=== PATIENT | female | born 2000 | race Two or more races ===

== ENCOUNTER 2021-04-26 09:35 | Outpatient (REF) | payer OTHER, SELFPAY ==
[2021-04-26 15:54] LABS: CT PCR NOT DETECTED (Not Detect.); NG PCR NOT DETECTED (Not Detect.)
== END 2021-04-26 09:36 | disposition home or self-care (01) ==
LOC: HO.LAB 09:35
PROVIDERS: PCP Internal Medicine; Visit Provider Obstetrics & Gynecology
DX: Z01.419 Encounter for gynecological examination (general) (routine) without abnormal findings (principal); Z11.3 Encounter for screening for infections with a predominantly sexual mode of transmission
CPT/HCPCS: 87491; 87591; 88142

== ENCOUNTER 2022-01-16 09:23 | Emergency (ER) | payer OTHER, SELFPAY ==
--- NOTE | ~2022-01-16 | XR_ITS ---
EXAMINATION: XR CHEST CLINICAL INFORMATION: Chest pain COMPARISON: None TECHNIQUE: 2 views of the chest were obtained. FINDINGS: No significant abnormality is noted involving the heart, lungs, mediastinum, bony thorax or soft tissues. XR/XR chest 2V IMPRESSION: Unremarkable examination.
[2022-01-16 09:51] VITALS: BP 112/74; PULSE 100; RESP 16; TEMP 36.7; O2SAT 97; BMI 30.8
--- NOTE | 2022-01-16 11:06 | ECG_ITS ---
Test Reason : CHEST PAIN/ DISSY Blood Pressure : / mmHG Vent. Rate : 089 BPM Atrial Rate : 089 BPM P-R Int : 128 ms QRS Dur : 084 ms QT Int : 360 ms P-R-T Axes : 054 037 039 degrees QTc Int : 438 ms Normal sinus rhythm with sinus arrhythmia Normal ECG No previous ECGs available Referred By: Xuan Vaughan Electronically Signed By:Alberto Castrejon
[2022-01-16 12:59] LABS: MANUAL DIFF FLAG NO
[2022-01-16 13:02] LABS: Basophils Percent Auto 0.2 % (0-2); Eosinophils Absolute Auto 0.1 X10*3/uL (0.0-0.4); Hematocrit 38.3 % (37.0-47.0); Hemoglobin 12.5 g/dl (12.0-16.0); Imm Gran Abs Auto 0.02 X10*3/uL (0.00-0.03); Imm Gran Pct Auto 0.4 % (0.0-0.4); Lymphocytes Absolute Auto 1.2 X10*3/uL (1.2-4.9); Lymphocytes Percent Auto 23.8 % (20-40); Mean Corpuscular HGB Conc 32.6 g/dl (31.0-35.0); Mean Corpuscular Hemoglobin 28.6 pg (27.0-33.0); Mean Corpuscular Volume 87.6 fL (80.0-98.0); Monocytes Absolute Auto 0.4 X10*3/uL (0.1-1.2); Monocytes Percent Auto 8.3 % (2-11); Neutrophils Absolute Auto 3.3 x10*3/uL (2.0-8.3); Neutrophils Percent Auto 65.3 % (45-73); Platelet Count 222 X10*3/uL (160-400); Red Blood Count 4.37 X10*6/uL (4.20-5.50); Red Cell Distribution Width 13.3 % (11.0-16.0); White Blood Count 5.1 X10*3/uL (4.8-10.8)
[2022-01-16 13:23] LABS: Troponin-I High Sensitivity < 3.5 ng/L (<3.5-17.0)
[2022-01-16 13:42] LABS: Alanine Aminotransferase 21 U/L (0-31); Albumin Level 4.4 g/dL (3.5-5.0); Alkaline Phosphatase 85 U/L (39-117); Anion Gap 11 (12-20); Aspartate Amino Transferase 21 U/L (5-31); Bilirubin Direct 0.4 mg/dL (0.0-0.5); Bilirubin Total 0.9 mg/dL (0.0-1.0); Blood Urea Nitrogen 10 mg/dL (9-16); Calcium 8.8 mg/dL (8.4-10.2); Carbon Dioxide 28 mmol/L (22-29); Chloride 105 mmol/L (96-108); Estimated Glomerular Filt Rate > 60; Glucose Random 91 mg/dL (60-115); Lipase 12 U/L (8-78); Potassium 3.6 mmol/L (3.3-5.1); Sodium 140 mmol/L (135-145); Total Protein 7.7 g/dL (6.5-8.0)
[2022-01-16 13:50] LABS: HCG Quantitative < 2 mIU/mL
--- NOTE | 2022-01-16 14:06 | ED.NAVMDI ---
HPI - Nausea/Vomiting/Diarrhea General Chief complaint: General Medical Stated complaint: vomiting blood, lightheaded, sob Time Seen by Provider: 01/16/22 11:05 Source: patient Mode of arrival: ambulatory Limitations: no limitations History of Present Illness MD elicited complaint: nausea and vomiting Onset (ago): day(s) (last night) Description of vomiting: food contents and watery Associated nausea: Yes Associated abdominal pain: No Severity: moderate Exacerbating factors: eating Relieving factors: none Context: other (denies any exposures, ate at home) Associated symptoms: chest pain (along sternum hx of costochondritis), loss of appetite, malaise and nausea/vomiting Related Data Home Medications Medication Instructions Recorded Confirmed copper 380 square mm intrauterine intrauterine 04/26/21 device (ParaGard T 380A) Previous Rx's Medication Instructions Recorded ondansetron 4 mg disintegrating 4 mg PO Q8H PRN nausea and 01/16/22 tablet vomiting #20 tabs Allergies Allergy/AdvReac Type Severity Reaction Status Date / Time No Known Allergies Allergy Verified 04/26/21 09:46 Review of Systems Review of Systems: Constitutional : No Fever, No Chills ENT/Mouth : No sore throat, No Rhinorrhea Eyes: No Eye Pain, No Swelling Cardiovascular : pos Chest Pain, no SOB, No Edema, No Palpitations Respiratory : No Cough, No Sputum Gastrointestinal : pos Nausea, pos Vomiting, No Diarrhea, No abdominal Pain, No Hematochezia, No Melena Genitourinary : No Dysuria, No Urinary Frequency Musculoskeletal : No joint pain, No Myalgias, No Joint Swelling Skin : No Skin Lesions, No rash Neuro : No Weakness, No Numbness, No Dizziness, No Headache Psych : No Anxiety/Panic, No Depression Heme/Lymph: No Bruising, No Lymphadenopathy Endocrine : No Polyuria, No Polydipsia All other systems reviewed and are negative Gastrointestinal: Gastrointestinal: Reports nausea PMFSH Past Medical History Attestation statement: The following information was validated with the patient. Medical History Costochondritis Family History Family History Maternal Aunt Breast CA Social History Social History Patient Tobacco Use Status: Never used Tobacco Advance Directives: No Advance Directives Information Provided: No Physical Exam Vital Signs: Vital Signs: Last Vital Signs Temp 98.1 F 01/16/22 14:23 Pulse 88 01/16/22 14:23 Resp 16 01/16/22 14:23 BP 110/74 01/16/22 14:23 Pulse Ox 100 01/16/22 14:23 O2 Del Method 01/16/22 14:23 BMI result Body Mass Index 30.8 Appearance: Alert. Oriented X3. No acute distress. Eyes: Pupils equal, round and reactive to light. ENT: Pharynx normal. Neck: Normal inspection. Neck supple. CVS: Normal heart rate and rhythm. Pulses normal. Chest: mild ttp along sternum reproduces pain Respiratory: No respiratory distress. Breath sounds normal. Abdomen: Soft and nontender. Skin: Skin warm and dry. Normal skin color. Normal skin turgor. Extremities: No lower extremity edema. No calf ttp Neuro: Oriented X 3. No motor deficit. No sensory deficit. MDM - Nausea/Vomiting/Diarrhea MDM Narrative Medical decision making narrative: 21 yo female with hx of costochondritis here with c/o n/v all night without food exposures, benign abdominal exam. She also has reproduceable CWP. At this time not toxic, no vomiting here, labs from waiting room CBC, LFTs, BMP, lipase, hcg negative and no abdominal ttp will give ODT zofran and obtain UA. Dispo per UA and PO challenge. Doubt appendicitis/GB pathology given lack of abdominal pain Lab Data Result diagrams: 01/16/22 12:53 01/16/22 12:53 Labs: Lab Results 01/16/22 01/16/22 01/16/22 Range/Units 12:53 12:53 12:53 WBC 5.1 (4.8-10.8) X10*3/uL RBC 4.37 (4.20-5.50) X10*6/uL Hgb 12.5 (12.0-16.0) g/dl Hct 38.3 (37.0-47.0) % MCV 87.6 (80.0-98.0) fL MCH 28.6 (27.0-33.0) pg MCHC 32.6 (31.0-35.0) g/dl RDW 13.3 (11.0-16.0) % Plt Count 222 (160-400) X10*3/uL MPV 10.0 (9.4-12.3) fL Immature Gran % (Auto) 0.4 (0.0-0.4) % Neut % (Auto) 65.3 (45-73) % Lymph % (Auto) 23.8 (20-40) % [place] % (Auto) 8.3 (2-11) % Eos % (Auto) 2.0 (0-4) % Baso % (Auto) 0.2 (0-2) % Lymph # (Auto) 1.2 (1.2-4.9) X10*3/uL [place] # (Auto) 0.4 (0.1-1.2) X10*3/uL Eos # (Auto) 0.1 (0.0-0.4) X10*3/uL Baso # (Auto) 0.0 (0.0-0.2) X10*3/uL Abs Immat Gran (auto) 0.02 (0.00-0.03) X10*3/uL Absolute Neuts (auto) 3.3 (2.0-8.3) x10*3/uL Absolute Nucleated RBC 0.000 (0.0-0.012) X10*3/uL Nucleated RBC % (auto) 0.0 (0.0-0.2) /100WBC Sodium 140 (135-145) mmol/L Potassium 3.6 (3.3-5.1) mmol/L Chloride 105 (96-108) mmol/L Carbon Dioxide 28 (22-29) mmol/L Anion Gap 11 L (12-20) BUN 10 (9-16) mg/dL Creatinine 0.82 (0.5-1.4) mg/dL Estim Creat Clear Calc 107.0 Estimated GFR > 60 Random Glucose 91 (60-115) mg/dL Calcium 8.8 (8.4-10.2) mg/dL Total Bilirubin 0.9 (0.0-1.0) mg/dL Direct Bilirubin 0.4 (0.0-0.5) mg/dL AST 21 (5-31) U/L ALT 21 (0-31) U/L Alkaline Phosphatase 85 (39-117) U/L Troponin I High Sens < 3.5 (<3.5-17.0) ng/L Total Protein 7.7 (6.5-8.0) g/dL Albumin 4.4 (3.5-5.0) g/dL Lipase 12 (8-78) U/L Beta HCG, Quant < 2 mIU/mL Urine Color Urine Appearance Urine pH (5.0-8.0) Ur Specific Josephine (1.005-1.025) Urine Protein (NEG-TRACE) MG/DL Urine Glucose (UA) (NEG) MG/DL Urine Ketones (NEG) MG/DL Urine Blood (NEG) Urine Nitrite (NEG) Ur Leukocyte Esterase (NEG) 01/16/22 Range/Units 14:30 WBC (4.8-10.8) X10*3/uL RBC (4.20-5.50) X10*6/uL Hgb (12.0-16.0) g/dl Hct (37.0-47.0) % MCV (80.0-98.0) fL MCH (27.0-33.0) pg MCHC (31.0-35.0) g/dl RDW (11.0-16.0) % Plt Count (160-400) X10*3/uL MPV (9.4-12.3) fL Immature Gran % (Auto) (0.0-0.4) % Neut % (Auto) (45-73) % Lymph % (Auto) (20-40) % [place] % (Auto) (2-11) % Eos % (Auto) (0-4) % Baso % (Auto) (0-2) % Lymph # (Auto) (1.2-4.9) X10*3/uL [place] # (Auto) (0.1-1.2) X10*3/uL Eos # (Auto) (0.0-0.4) X10*3/uL Baso # (Auto) (0.0-0.2) X10*3/uL Abs Immat Gran (auto) (0.00-0.03) X10*3/uL Absolute Neuts (auto) (2.0-8.3) x10*3/uL Absolute Nucleated RBC (0.0-0.012) X10*3/uL Nucleated RBC % (auto) (0.0-0.2) /100WBC Sodium (135-145) mmol/L Potassium (3.3-5.1) mmol/L Chloride (96-108) mmol/L Carbon Dioxide (22-29) mmol/L Anion Gap (12-20) BUN (9-16) mg/dL Creatinine (0.5-1.4) mg/dL Estim Creat Clear Calc Estimated GFR Random Glucose (60-115) mg/dL Calcium (8.4-10.2) mg/dL Total Bilirubin (0.0-1.0) mg/dL Direct Bilirubin (0.0-0.5) mg/dL AST (5-31) U/L ALT (0-31) U/L Alkaline Phosphatase (39-117) U/L Troponin I High Sens (<3.5-17.0) ng/L Total Protein (6.5-8.0) g/dL Albumin (3.5-5.0) g/dL Lipase (8-78) U/L Beta HCG, Quant mIU/mL Urine Color YELLOW Urine Appearance CLEAR Urine pH 6.5 (5.0-8.0) Ur Specific Josephine 1.020 (1.005-1.025) Urine Protein 1+ H (NEG-TRACE) MG/DL Urine Glucose (UA) NEG (NEG) MG/DL Urine Ketones 5 (NEG) MG/DL Urine Blood NEG (NEG) Urine Nitrite NEG (NEG) Ur Leukocyte Esterase NEG (NEG) ECG Data Attestation: I personally reviewed and interpreted this ECG as follows: ECG interpretation date: 01/16/22 ECG interpretation time: 14:07 Interpretation: Rate: 89 Rhythm: NSR [place]: normal Normal P waves. Normal ALINA. Normal QRS complex. ST T wave : normal no THONG qTC: normal prior studies: no acute ischemia The study has been interpreted contemporaneously by me. . Discharge Plan Discharge Clinical Impression: Acute chest wall pain Vomiting Qualifiers: Vomiting type: unspecified Nausea presence: with nausea Qualified Code(s): R11.2 - Nausea with vomiting, unspecified Patient Disposition: Home, Self-Care Instructions: Acute Nausea and Vomiting (ED), Chest Wall Pain (ED) Additional Instructions: return to ED for any worsening symptoms or concerns Prescriptions: New ondansetron 4 mg tablet,disintegrating 4 mg PO Q8H PRN (Reason: nausea and vomiting) Qty: 20 0RF No Action ParaGard T 380A 380 square mm intrauterine device intrauterine Stand Alone Forms: Work/School Release
[2022-01-16] MEDS: Ondansetron ODT 4 MG TAB.RAPDIS TRANSLINGU (14:22)
[2022-01-16 14:23] VITALS: BP 110/74; PULSE 88; RESP 16; TEMP 36.7; O2SAT 100
[2022-01-16 14:40] LABS: Appearance Urine CLEAR; Color Urine YELLOW; Glucose Urine UA NEG (NEG); Leukocyte Esterase Urine NEG (NEG); Nitrite Urine NEG (NEG); PH 6.5 (5.0-8.0); UACC Culture Trigger NO; Urine Blood NEG (NEG); Urine Ketones 5 MG/DL (NEG); Urine Protein 1+ MG/DL (NEG-TRACE)
[2022-01-16 15:04] LABS: RBC Urine 0-2 /HPF (0); Squamous Epithelial Cell Urine 1+ /LPF; WBC Urine 0-2 /HPF (0-4)
== END 2022-01-16 15:06 | disposition home or self-care (01) ==
PROVIDERS: Emergency Provider Emergency Medicine
DX: R07.89 Other chest pain (principal); K92.0 Hematemesis; R06.02 Shortness of breath; Z79.899 Other long term (current) drug therapy
CPT/HCPCS: 36415; 71046; 80048; 80076; 81001; 83690; 84484; 84702; 85025; 93005; 99283

== ENCOUNTER 2022-05-17 12:20 | Outpatient (REF) | payer OTHER, SELFPAY ==
[2022-05-17 15:18] LABS: CT PCR NOT DETECTED (Not Detect.); NG PCR NOT DETECTED (Not Detect.)
[2022-05-18 11:14] LABS: BV Int Neg Control Negative (Negative); BV Int Pos Control Positive (Positive)
== END 2022-05-17 12:21 | disposition home or self-care (01) ==
LOC: HO.LNP 12:20
PROVIDERS: Visit Provider Advanced Practice Midwife
DX: Z01.419 Encounter for gynecological examination (general) (routine) without abnormal findings (principal)
CPT/HCPCS: 87480; 87491; 87510; 87591; 87660

== ENCOUNTER 2023-05-20 11:11 | Outpatient (AMB) | payer OTHER, SELFPAY ==
[2023-05-20 11:19] VITALS: BP 110/70; BMI 35.1
--- NOTE | 2023-05-20 11:19 | A.OFFVIS_ITS ---
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 Intake Note: no concerns Compensation Specialist Required: No Information Interpreted: non-clinical & clinical Flight Technician: Flight Technician Present Accompanied by: Self / Same As Patient Allergies food allergies Allergy (Mild, Uncoded 05/20/23 11:20) hives Medication List - Last Reconciled 05/20/23 by Terri Wallace CNM copper (ParaGard T 380A) intrauterine ondansetron 4 mg PO Q8H PRN Is last menstrual period known: Yes Last menstrual period: 04/28/23 HPI 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 She had can considered all of her options before choosing the ParaGard IUD and chose it thoughtfully because she does not like the effects of hormones on her body she has used pills in the past and did not like how they made her feel she does not want to switch to any hormonal method she and her fiance are thinking about having another baby in maybe in a couple of years. She has no worries about STDs but desires testing with the exam just as a matter of routine. She thinks she needs to get in better shape and she has good intentions to try to get up earlier in the morning before work and go to the gym which is any time fitness that she has a membership to she used to run and loves how she feels outside running and she used to run 4 miles a day but she thinks she is out of shape and if she tried to run it would not be good right now. She works in the [employer] in [place]. 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 Sexual orientation: Straight/Heterosexual Gender identity: Female Female Reproductive History Menstrual Age of Menarche: 8 Duration of menses: 6-7 days Date of last menstrual period: 04/28/23 control method: copper IUCD Total pregnancies: 1 Full term: 1 Number of Living Children: 1 Date of last pap smear: 04/26/21 Physical Exam Vital Signs: Last Vital Signs BP 110/70 05/20/23 11:19 BMI result Body Mass Index 35.1 Const General: healthy appearing, comfortable, no acute distress, well developed and alert Nutritional Appearance: average body habitus Orientation/consciousness: patient oriented x3 Limitations: no limitations HEENT Head: Yes normocephalic Neck Neck: Yes normal visual inspection Thyroid: Thyroid normal Chest Chest palpation & inspection: normal inspection of the chest Breast/axilla inspection: normal inspection of the breasts and normal inspection of the axillae Breast/axilla palpation: normal palpation of the breasts and normal palpation of the axillae Resp Effort & Inspection: normal respiratory effort GI Inspection: Yes normal to inspection, No Abdominal wall edema and No distended Palpation (GI): Soft to palpation and nontender Other: Vagina pink and moist very normal healthy appearing discharge cervix multiparous with normal appearing mucus and ParaGard strings extending from os approximately 2.5 cm. Uterus is small anteverted mobile nontender adnexa nontender not enlarged and fair tone with Kegel. Kegel's reviewed. General: Yes bladder normal to palpation External Female Exam: normal external appearance and normal appearance of the urethra Speculum Exam - Vagina: normal appearance of the vagina, normal palpation and normal vaginal discharge Speculum Exam - Cervix: normal appearance of the cervix, normal palpation and nontender Bimanual exam- vagina & uterus: normal bimanual exam, normal palpation, uterine size normal, bladder normal to palpation, consistency normal, normal palpation, uterine mobility normal, uterine shape normal, No Cervical tenderness present, non-tender and no cervical motion tenderness Bimanual Exam- Adnexa, other: normal adnexae, no masses, normal and No adnexal tenderness Neuro General: patient oriented x3 Results Reviewed Results Reviewed: Name: Michelle Zhou Age/Sex: Attending: Jak Ahmadi MD : 2000 Submitted by: Jak Ahmadi MD Copies to: Diya Devine MD MR #: [id number] Status: DEP REF Collected: 04/26/21 Location: .LAB Received: 04/26/21 Interpretation Satisfactory for evaluation. Moderate inflammation. Negative for intraepithelial lesion or malignancy. Clinical Information LMP: 03/2021 Previous PAP test: Never Material Received ThinPrep-Cervical Copies To Diya Devine MD [address] [place] [address] Dr. [address]w [address] [address] Jak Ahmadi MD [address] [place] [address] Dr. Mathew [address] [address] Electronically Signed By: SEEMA Brown (ASCP) 05/11/21 1106 The Pap Test is a screening procedure with the inherent possibility of both false negative and false positive results. Results should be interpreted in the context of historic and current clinical findings. Reliability of the Pap Test is enhanced by performing the test on a regular repetitive basis. Patient: Michelle Zhou Age/Sex: 20/F [id number] MR#: [id number] Page 1 of 1 Assessment & Plan Assessment & Plan (1) IUD (intrauterine device) in place: Comment: Has ParaGard IUD in place since after of her 1-year-old Code(s): Z97.5 - Presence of (intrauterine) contraceptive device (2) Cervical cancer screening: Comment: 05/17/2022 Pap is negative. Code(s): Z12.4 - Encounter for screening for malignant neoplasm of cervix (3) Screen for sexually transmitted diseases: Code(s): Z11.3 - Encounter for screening for infections with a predominantly sexual mode of transmission (4) Well woman exam with routine gynecological exam: Code(s): Z01.419 - Encounter for gynecological examination (general) (routine) without abnormal findings Plan -----Discussed in this visit the following: healthy balanced diet, regular and consistent exercise, getting recommended health screens, doing the best she can for her particular health concerns, kegel exercises, pap smear screening and followup recommendations, mammography screening and SBE, normal changes in cycles in her life stage--- .----I reviewed available options for Control Methods and their associated side effect profiles. In particular, we discussed the method most of interest to her. After discussion of all of the alternatives and their side effect profile she is pretty clear that she wants to stick with the ParaGard IUD as she feels she can embrace the side effects better than the side effects of per hormones. Discussed removal of the ParaGard IUD in that it should be right when she wants to conceive because this no need to take it out way ahead of time as with other hormonal methods discussed ways of handling the cramps and the pain with ovulation ranging from ibuprofen to midol,which she sometimes uses, all naproxen or heating pad. Discussed that to not take any more than is recommended on the package directions.. Discussed that often taking ibuprofen at the start of the really crampy days of her. Can be helpful strategy Applauded her goals to become more physically active and get in shape. She remembers loving how she felt when she ran and she knows that the endorphins are good for how 1 feels. She does not feel she needs blood work for STIs she will be switching to her jobs medical insurance in July so may be finding a new primary at that time as well so she can consider whether not she wants any lab work at that time as well. RTC 1 year or p.r.n. Orders: Orders Bacterial Vaginosis Panel Today Z11.3 - Encounter for screening for infections with a predominantly sexual mode of transmission CT NG by PCR Today Z11.3 - Encounter for screening for infections with a predominantly sexual mode of transmission Coding Level of Care Code Est Pt Prev Care [id number]([id number]) Diagnoses IUD (intrauterine device) in place Z97.5 Cervical cancer screening Z12.4 Screen for sexually transmitted diseases Z11.3 Well woman exam with routine gynecological exam Z01.419
== END 2023-05-20 12:31 | disposition home or self-care (01) ==
PROVIDERS: Visit Provider Advanced Practice Midwife
DX: Z01.419 Encounter for gynecological examination (general) (routine) without abnormal findings (principal); Z97.5 Presence of (intrauterine) contraceptive device
CPT/HCPCS: 99395

== ENCOUNTER 2023-05-20 11:11 | Outpatient (REF) | payer OTHER, SELFPAY ==
[2023-05-20 15:59] LABS: CT PCR NOT DETECTED (Not Detect.); NG PCR NOT DETECTED (Not Detect.)
[2023-05-21 09:12] LABS: BV Int Neg Control Negative (Negative); BV Int Pos Control Positive (Positive)
== END 2023-05-20 11:12 | disposition home or self-care (01) ==
LOC: HO.LNP 11:11
PROVIDERS: Visit Provider Advanced Practice Midwife
DX: Z01.419 Encounter for gynecological examination (general) (routine) without abnormal findings (principal); Z97.5 Presence of (intrauterine) contraceptive device
CPT/HCPCS: 0353U; 87480; 87510; 87660; 99395

== ENCOUNTER 2023-08-21 13:56 | Outpatient (AMB) | payer OTHER, SELFPAY ==
--- NOTE | 2023-08-21 13:56 | MHC.OFFVIS ---
Intake Intake Visit Reasons: IUD removal Consult Traveling Storekeeper Required: No Allergies food allergies Allergy (Mild, Uncoded 08/21/23 13:57) hives Medication List - Last Reconciled 08/21/23 by Terri Wallace CNM copper (ParaGard T 380A) intrauterine Is last menstrual period known: Yes Last menstrual period: 07/31/23 Post menopausal: No HPI IUD removal Consult HPI Details Chart reviewed patient was seen for annual exam in May and had stated at that time she was contemplating future childbearing she has the ParaGard IUD her last menstrual period was about 2 weeks ago. Patient was called phone isn't answering will attempt again. Patient had spoken with the certified medical coding specialist for the intake. Note I apparently dial the wrong number twice) Patient tells me she is interested in childbearing. Her little girl is asking for a little sister. They will be happy either way. She is taking vitamins she has not on any other medication she does not have any medical problems to speak of. She was a little bit concerned because she said her sister found removal very uncomfortable. This IUD was inserted about 6 weeks and did not her too bad going in. I described to her the removal process that I will grasp hold of the strings and have her cough and remove the IUD while she coughs. I reviewed that if she has her period It is often the cervix somewhat and it may be less uncomfortable and if she is very concerned about that she can schedule it for a while she has her period which lasts about 4-6 days and is heavy for about 3-4 of them. If not she can call and see if she can get in any day that we have an opening and there are often cancellations and I described her where we are currently at the [address] [place] [address] office and the parking situation as well and I recommend she just call the office and consider calling each day to see if this cancellations and hopefully we can accommodate her very soon. 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 Sexual orientation: Straight/Heterosexual Gender identity: Female Female Reproductive History Menstrual Age of Menarche: 8 Duration of menses: 3-5 days Date of last menstrual period: 07/31/23 control method: copper IUCD Date of last pap smear: 04/26/21 (negative) Assessment & Plan Assessment & Plan (1) IUD (intrauterine device) in place: Comment: Has ParaGard IUD in place since after of her 1-year-old Code(s): Z97.5 - Presence of (intrauterine) contraceptive device (2) Patient desires : Code(s): Z31.9 - Encounter for procreative management, unspecified Plan Patient tells me she is interested in childbearing. Her little girl is asking for a little sister. They will be happy either way. She is taking vitamins she has not on any other medication she does not have any medical problems to speak of. She was a little bit concerned because she said her sister found removal very uncomfortable. This IUD was inserted about 6 weeks and did not her too bad going in. I described to her the removal process that I will grasp hold of the strings and have her cough and remove the IUD while she coughs. I reviewed that if she has her period It is often the cervix somewhat and it may be less uncomfortable and if she is very concerned about that she can schedule it for a while she has her period which lasts about 4-6 days and is heavy for about 3-4 of them. If not she can call and see if she can get in any day that we have an opening and there are often cancellations and I described her where we are currently at the [address] [place] [address] office and the parking situation as well and I recommend she just call the office and consider calling each day to see if this cancellations and hopefully we can accommodate her very soon. Also she is aware of symptoms of ovulation and is regular.. Telehealth Telehealth Location of provider rendering services: practice address Location of patient: other (work) Patient Identification confirmed using: Name, : Yes Telehealth method: video Patient verbally consented to treatment: Yes Patient verbally consented to billing insurance company: Yes Patient informed of any privacy concerns related to visit: Yes Coding Level of Care Code Tele Est Pt Level 3 (38121) Diagnoses IUD (intrauterine device) in place Z97.5 Patient desires Z31.9 Time Spent (min) 15 Comment 2cr/9 speaking w pt (dark video), 4 charting
== END 2023-08-21 15:21 | disposition home or self-care (01) ==
PROVIDERS: Visit Provider Advanced Practice Midwife
DX: Z97.5 Presence of (intrauterine) contraceptive device (principal); Z31.9 Encounter for procreative management, unspecified
CPT/HCPCS: 99213

== ENCOUNTER → 2023-08-21 13:56 | Outpatient (BNVA) | payer OTHER, SELFPAY | PROVIDERS: Visit Provider Advanced Practice Midwife ==

== ENCOUNTER 2023-08-30 13:39 | Outpatient (AMB) | payer OTHER, SELFPAY ==
[2023-08-30 14:06] VITALS: BP 120/70; BMI 35.2
--- NOTE | 2023-08-30 14:06 | A.OFFVIS_ITS ---
Intake Vital Signs 08/30/23 14:06 Height 5 ft 3 in Weight 199 lb BMI 35.2 BP 120/70 Intake Visit Reasons: IUD Removal Waste Chopper Required: No Information Interpreted: non-clinical & clinical Small Products Ii Assembler: Small Products Ii Assembler Present (Favian) Allergies food allergies Allergy (Mild, Uncoded 08/21/23 13:57) hives peanuts Allergy (Mild, Uncoded 08/30/23 14:07) Anaphylaxis tree nuts Allergy (Mild, Uncoded 08/30/23 14:07) Anaphylaxis Medication List - Last Reconciled 08/30/23 by Terri Wallace CNM ascorbate calcium (vitamin C) 1 g PO Q6H cholecalciferol (vitamin D3) 25 mcg PO DAILY copper (ParaGard T 380A) intrauterine PNV [id number] 400 mcg-35 mg- 25 mg-5 mg ( Gummies) tabs PO Is last menstrual period known: Yes Last menstrual period: 07/31/23 Post menopausal: No Patient : No HPI IUD Removal HPI Details Patient is here to get her IUD removed she has had the ParaGard IUD for about 4 years since her of her daughter she gets normal regular periods she can tell when she is ovulating and she and her partner who is now her recently got and they are hoping for more children and ready to start she is taking vitamins and feels she is healthy and doing well and she just got new health insurance she lives in [place] and she will be exploring where she would want to go for care and delivery in [facility]. 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 Sexual orientation: Straight/Heterosexual Gender identity: Female Female Reproductive History Menstrual Age of Menarche: 8 Duration of menses: 3-5 days Date of last menstrual period: 07/31/23 control method: copper IUCD Total pregnancies: 1 Full term: 1 Number of Living Children: 1 Date of last pap smear: 04/26/21 (negative) Physical Exam Vital Signs: Last Vital Signs BP 120/70 08/30/23 14:06 BMI result Body Mass Index 35.2 Other: Slightly milky white discharge that patient states is normal before her menses declined STI testing ParaGard string visible string grasped with ring forceps and easily removed when patient gave a cough at her request. Small amount of bleeding noted after removal. External Female Exam: normal external appearance and normal appearance of the urethra Speculum Exam - Vagina: normal appearance of the vagina and normal vaginal discharge Speculum Exam - Cervix: normal appearance of the cervix and Cervical os closed Office Procedures IUD Insert/Removal Details Details: Speculum exam was done patient did have a little bit of a white liquidy discharge she is due for her. And she said that she always gets that kind of discharge right before her. James she declined STI testing today cervix multiparous string of ParaGard easily visible string was grasped and when patient gave a cough the IUD was easily removed she is taking it home as a souvenir. [id number] Removal Procedure code (CPT) selection complete Assessment & Plan Assessment & Plan (1) Patient desires : Code(s): Z31.9 - Encounter for procreative management, unspecified (2) IUD (intrauterine device) in place: Comment: Has ParaGard IUD in place since after of her 1-year-old Code(s): Z97.5 - Presence of (intrauterine) contraceptive device (3) Encounter for IUD removal: Code(s): Z30.432 - Encounter for removal of intrauterine contraceptive device Plan Patient is here to get her IUD removed she has had the ParaGard IUD for about 4 years since her of her daughter she gets normal regular periods she can tell when she is ovulating and she and her partner who is now her recently got and they are hoping for more children and ready to start she is taking vitamins and feels she is healthy and doing well and she just got new health insurance she lives in [place] and she will be exploring where she would want to go for care and delivery in [facility]. ---I discussed with pt some of the optimal strategies for planning a , including achieving the best health she can before , including heathy balanced diet, exercise, wt loss to ideal BMI if appropriate, avoiding toxic substances and medications, not smoking, and taking a multivitamin w folic acid daily. Any specific health concerns should be managed before seeking/ putting oneself at risk of pregancy. In addition I reviewed normal cycles, fertility awareness and signs of ovulation, and timing to avoid, and achieve when she feel ready. I also discussed emotional and relationship and support readiness before embarking on . Orders: Orders AMB IUD Insertion/Removal - Patient Supply Today Z30.432 - Encounter for removal of intrauterine contraceptive device, Z31.9 - Encounter for procreative management, unspecified, Z97.5 - Presence of (intrauterine) contraceptive device Coding Level of Care Code Est Pt Level 3 (42020) Diagnoses Patient desires Z31.9 IUD (intrauterine device) in place Z97.5 Encounter for IUD removal Z30.432 CPT Codes Details - CPT: 33548-OJR Removal ([id number])
== END 2023-08-30 14:49 | disposition home or self-care (01) ==
LOC: HO.HWSM 13:39
PROVIDERS: Visit Provider Advanced Practice Midwife
DX: Z30.432 Encounter for removal of intrauterine contraceptive device (principal)
CPT/HCPCS: 58301

== ENCOUNTER → 2023-08-30 13:39 | Outpatient (BNVA) | payer OTHER, SELFPAY | PROVIDERS: Visit Provider Advanced Practice Midwife | DX: Z30.432 Encounter for removal of intrauterine contraceptive device (principal); Z31.9 Encounter for procreative management, unspecified | CPT/HCPCS: 58301 ==